=== PATIENT | female | born 1985 | race African-American/Black ===

== ENCOUNTER 2016-06-17 11:08 | Emergency (ER) | payer OTHER ==
[~2016-06-17] VITALS: Ht 154.9 cm; Wt 104.3 kg
[~2016-06-17 11:08] MED LIST: ALBUTEROL17 G1 IH; AZITHROMYCIN250 MG1 PO; COLACE100 MG PO; Colace PO; ENDOCET 5-3251 EACH PO; FERROUS SULFAT325 MG PO; Feosol PO; IBUPROFEN800 MG PO; MOTRIN800 MG PO; Motrin PO; NORCO 5/3251 TABLET PO; PREDNISONE10 MG PO; PREDNISONE20 MG PO; PRENATAL TABLE1 EAC3 PO; PROAIR HFA8.5 GM IH; Percocet 5/325,Endoc PO; ROBITUSSIN AC,T10 ML PO; TUMS500 MG PO; ZANTAC150 MG PO; ZITHROMAX Z-PA250 MG PO; ~No Medications
[2016-06-17 12:01] LABS: INFLUENZA A VIRAL ANTIGEN NEGATIVE; INFLUENZA B VIRAL ANTIGEN NEGATIVE
[2016-06-17] MEDS ORDERED: AUGMENTIN875 MG PO (12:17)
[2016-06-17 12:56] VITALS: BP 105/79
== END 2016-06-17 12:56 | disposition home or self-care (01) ==
LOC: EME 11:08
PROVIDERS: Emergency Medicine
DX: J02.0 Streptococcal pharyngitis (principal); R05 Cough; R51 Headache; F17.200 Nicotine dependence, unspecified, uncomplicated
CPT/HCPCS: 87502; 87651 90; 99281; 99284

== ENCOUNTER 2017-02-20 13:57 | Emergency (ER) | payer OTHER ==
[~2017-02-20] VITALS: Ht 157.5 cm; Wt 95.3 kg
[~2017-02-20 13:57] MED LIST changes: +AUGMENTIN875 MG PO
[2017-02-20] MEDS ORDERED: PREDNISONE20 MG PO (15:25)
[2017-02-20] MEDS ORDERED: VENTOLIN HFA18 GM IH (15:25)
[2017-02-20 15:42] VITALS: BP 121/76
== END 2017-02-20 15:45 | disposition home or self-care (01) ==
LOC: EME 13:57
DX: J45.901 Unspecified asthma with (acute) exacerbation (principal); F17.200 Nicotine dependence, unspecified, uncomplicated
CPT/HCPCS: 94640; 99281; 99284; J7512

== ENCOUNTER 2017-04-28 19:22 | Inpatient (IN) | payer OTHER ==
[~2017-04-28] VITALS: Ht 154.9 cm; Wt 95.7 kg
[~2017-04-28 19:22] MED LIST changes: +VENTOLIN HFA18 GM IH; +ZOFRAN4 MG PO
[2017-04-28 19:57] LABS: MCH 29.8 PG (29.0-34.0); MCHC 32.8 G/DL (30.0-36.0); MCV 91.1 FL (83-99); MEAN PLAT.VOLUME 10.6 uM^3 (9.5-12.4); PLATELET COUNT 233 K/uL (156-360); RBC DIS.WIDTH-CV 13.3 % (11.8-14.6); RBC DIS.WIDTH-SD 44.4 % (39-53); RED BLOOD COUNT 4.39 M/uL (3.80-5.20); WHITE BLOOD COUNT 6.3 K/uL (4.1-10.2)
[2017-04-28 20:06] LABS: CHLORIDE 111 mEq/L (99-109); SODIUM 141 mEq/L (136-147)
[2017-04-28 20:07] LABS: GLUCOSE 87 mg/dL (70-99)
[2017-04-28 20:09] LABS: ANION GAP 7 MEQ/L (2-14)
[2017-04-28 20:11] LABS: GFR ESTIMATE (CALCULATED) > 59 mL/min/; SERUM ETHYL ALCOHOL < 10 mg/dL
[2017-04-28 20:12] LABS: UREA NITROGEN (BUN) 11 mg/dL (9-23)
[2017-04-28 20:19] LABS: QUANTITATIVE HCG < 4.0 MIU/ML
[2017-04-28 20:24] LABS: AMPHETAMINE NEGATIVE (500 ng/mL); BARBITURATES NEGATIVE (200 ng/mL); BENZODIAZEPINES NEGATIVE (150 ng/mL); COCAINE PRESUMPTIVE POSITIVE (150 ng/mL); METHADONE NEGATIVE (200 ng/mL); METHAMPHETAMINE NEGATIVE (500 ng/mL); OPIATES (MORPHINE) NEGATIVE (100 ng/mL); OXYCODONE NEGATIVE (100 ng/mL); PHENCYCLIDINE NEGATIVE (25 ng/mL); PROPOXYPHENE NEGATIVE (300 ng/mL); THC CANNABINOIDS PRESUMPTIVE POSITIVE (50 ng/mL); TRICYCLIC ANTIDEPRESSANTS NEGATIVE (300 ng/mL)
[2017-04-28 20:25] LABS: ADD MEDTOX COMMENT Y; INTERNAL CONTROLS VALID? YES
[2017-04-28 22:51] VITALS: BP 113/73
[2017-04-29 07:59] VITALS: BP 118/65
[2017-04-29 16:30] VITALS: BP 122/77
[2017-04-30 08:00] VITALS: BP 97/54
[2017-04-30 15:28] VITALS: BP 102/61
[2017-05-01 07:53] VITALS: BP 109/62
[2017-05-01 15:22] VITALS: BP 103/58
[2017-05-02 08:00] VITALS: BP 98/53
[2017-05-02 15:49] VITALS: BP 113/77
[2017-05-02 17:39] LABS: ADD MIUA? YES; BILIRUBIN NEGATIVE; BLOOD LARGE; COLOR YELLOW ((YELLOW)); GLUCOSE (STRIP) NEGATIVE; KETONES NEGATIVE; LEUKOCYTES LARGE; NITRITE NEGATIVE; PROTEIN (STRIP) 100; SPECIFIC GRAVITY 1.023 (1.000-1.030); UROBILINOGEN 0.2 MG/DL (0.2-1.0)
[2017-05-02 18:03] LABS: EPITHELIAL CELLS 1+ /HPF; MUCUS RARE /LPF; RED BLOOD CELLS TNTC /HPF (0-5); WHITE BLOOD CELLS TNTC /HPF (0-5)
[2017-05-02 18:04] LABS: BACTERIA 2+ /HPF
[2017-05-03 08:02] VITALS: BP 95/54
[2017-05-03] MEDS ORDERED: SERTRALINE HCL100 MG PO (11:48)
[2017-05-03] MEDS ORDERED: FOLIC ACID1 MG PO (11:48)
[2017-05-03] MEDS ORDERED: CIPROFLOXACIN500 M1 PO (11:48)
[2017-05-03] MEDS ORDERED: Thiamine,Vitamin B1 PO (11:48)
[2017-05-03] MEDS ORDERED: DESYREL100 MG PO (11:48)
[2017-05-03] MEDS ORDERED: NALTREXONE HCL50 MG PO (11:49)
[2017-05-03 14:57] VITALS: BP 98/55
== END 2017-05-03 16:00 | disposition home or self-care (01) | DRG 885 ==
LOC: EME 19:22 → 1WEST 21:53 → EDOF 21:53 → ENRESERV 22:35 → 1WEST 22:40
PROVIDERS: Psychiatry & Neurology Psychiatry
DX: F33.2 Major depressive disorder, recurrent severe without psychotic features (principal); R45.851 Suicidal ideations; N39.0 Urinary tract infection, site not specified; F14.20 Cocaine dependence, uncomplicated; F10.20 Alcohol dependence, uncomplicated; G47.00 Insomnia, unspecified; F41.9 Anxiety disorder, unspecified; F12.20 Cannabis dependence, uncomplicated; F17.210 Nicotine dependence, cigarettes, uncomplicated; F43.20 Adjustment disorder, unspecified; J45.909 Unspecified asthma, uncomplicated; Z79.51 Long term (current) use of inhaled steroids; Z81.1 Family history of alcohol abuse and dependence; Z81.8 Family history of other mental and behavioral disorders
CPT/HCPCS: 80048; 81003; 84702; 84999; 85027; 90839; 94640; 97150 GO; 97165 GO; 97530 GO; 99281; 99284; G0480; Q0177

== ENCOUNTER → 2018-01-06 | Outpatient (CLI) | payer OTHER ==
[~2018-01-06] MED LIST changes: +CIPROFLOXACIN500 M1 PO; +DESYREL100 MG PO; +FOLIC ACID1 MG PO; +NALTREXONE HCL50 MG PO; +SERTRALINE HCL100 MG PO; +Thiamine,Vitamin B1 PO
== END | disposition home or self-care (01) ==
LOC: RES 09:00
DX: R94.2 Abnormal results of pulmonary function studies (principal)
CPT/HCPCS: 94060